=== PATIENT | male | born 1965 | race Caucasian/White ===

== ENCOUNTER 2020-02-18 20:23 | Emergency (ER) | payer OTHER, SELFPAY ==
--- NOTE | ~2020-02-18 | CT_ITS ---
EXAMINATION: CT abdomen pelvis w con EXAM DATE: 02/18/2020 22:05 INDICATION: Right lateral abdominal pain. TECHNIQUE: Spiral CT of the abdomen and pelvis was performed following intravenous injection of 100 m L Omnipaque 350. Axial, coronal and sagittal images were reviewed. The dose-length product (DLP) fo r this examination was 317.20 mGy-cm. The exposure was tailored according to patient size (auto mA e xposure control), and iterative reconstruction (ASIR) was used as additional dose reduction technique . Comparison is made to prior examination from 05/27/2008. FINDINGS: The liver, spleen, adrenal glands and pancreas are unremarkable. Gallbladder is unremarkab le. No biliary obstruction. Portal and splenic veins are patent. Kidneys enhance symmetrically. T here is no hydronephrosis. The prostate is unremarkable. The bladder is unremarkable. There is no retroperitoneal or pelvic lymphadenopathy. The appendix is normal. The stomach and small bowel are unremarkable. There is expected amount of c olonic stool. No free intraperitoneal gas. The heart is normal in size. There are no pericardial or pleural effusions. The lung bases are unremarkable. The bones are unremarkable. Small umbilica l fat-containing hernia. IMPRESSION: 1. No acute intra-abdominal findings. 2. Small umbilical fat-containing hernia. Reviewed, dictated and finalized at location A.
[2020-02-18 20:29] VITALS: BP 147/38; PULSE 57; RESP 18; TEMP 35.9; O2SAT 100
[2020-02-18 20:36] LABS: Basophils Percent Auto 0.4 % (0.2-1.2); Eosinophils Absolute Auto 0.1 K/mm3 (0-0.3); Eosinophils Percent Auto 1.7 % (0-4.4); Immature Granulocyte Absolute 0.01 K/mm3 (0.00-0.031); Immature Granulocyte Percent A 0.1 % (0-0.5); Lymphocytes Absolute Auto 2.05 K/mm3 (0.9-3.2); Lymphocytes Percent Auto 26.3 % (18.3-44.2); Mean Corpuscular HGB Conc 34.1 g/dl (32-36); Mean Corpuscular Hemoglobin 31.2 pg (26-34); Mean Corpuscular Volume 91.5 fl (80-100); Mean Platelet Volume 9.9 fl (7.4-10.4); Monocytes Absolute Auto 0.4 K/mm3 (0.1-0.6); Monocytes Percent Auto 5.5 % (2.6-8.5); Neutrophils Absolute Auto 5.2 K/mm3 (1.3-6.7); Platelet Count Result 260 k/mm3 (150-375); Red Blood Count 4.81 M/mm3 (4.6-6.20); Red Cell Distribution Width 12.7 % (11.5-14.5); White Blood Count 7.8 K/mm3 (4.5-10.0)
[2020-02-18 20:48] LABS: Alanine Aminotransferase 21 U/L (4-50); Albumin Level 4.3 g/dL (3.5-5.1); Alkaline Phosphatase 68 U/L (38-126); Anion Gap 12.6 mmol/L (7-16); Aspartate Amino Transferase 24 U/L (17-59); Bilirubin,Total 0.6 mg/dL (0.2-1.3); Blood Urea Nitrogen 18 mg/dL (9-20); Carbon Dioxide 27 mmol/L (22-30); Chloride 102 mmol/L (98-107); Estimated CRCL calculation 74 ml/min; Estimated Glomerular Filt Rate > 60; Glucose 155 mg/dL (75-110); Lipase 50 U/L (23-300); Potassium 4.6 mmol/L (3.4-5.0); Sodium 137 mmol/L (137-145)
[2020-02-18 21:02] LABS: Add Urine Microscopic? YES; Appearance Urine Clear (Clear); Bilirubin Urine Negative (Negative); Blood Urine Negative (Negative); Color Urine Yellow (Yellow); Glucose Urine UA Negative (Negative); Ketones Urine Negative (Negative); Leukocyte Esterase Ur Negative LEU/UL (Negative); Mucus Urine Few /lpf; Nitrate Urine Negative (Negative); Protein Urine Negative (Negative); RBC Urine 0-2 /hpf (0-2); Specific Grav Ur 1.021 (1.001-1.035); Urobilinogen Urine Negative mg/dL (<2.0); WBC Urine 0-3 /hpf
--- NOTE | 2020-02-18 21:09 | ED.ABDPAIN ---
HPI - Abdominal Pain General Chief Complaint: Abdominal Pain Stated Complaint: abd pain Time Seen by Provider: 02/18/20 21:04 History of Present Illness HPI narrative: Patient presents with his girlfriend Chastity for right-sided abdominal pain. Started about 2 PM today. Maximum is 8 out of 10 on the pain. Pain comes in severe to moderate waves. He had some chills and sweats with nausea earlier. No documented fever. He still has his appendix and his gallbladder. His surgeries include left inguinal hernia repair. He has not been sick recent. He does not smoke cigarettes, rarely drinks alcohol, does not do marijuana. 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 MD elicited complaint: abdominal pain Pertinent past history: other (Left inguinal hernia repair) Onset (ago): hour(s) Pain Consistency: other (Waxes and wanes) Location: R flank Severity: severe Radiation: none Exacerbating factors: other (Palpitation) Relieving factors: nothing Context: confirms other (None of the above) Associated symptoms: nausea and chills Related Data Home Medications Medication Instructions Recorded Confirmed No Home Medications 02/18/20 02/18/20 Allergies Allergy/AdvReac Type Severity Reaction Status Date / Time No Known Allergies Allergy Unverified 02/18/20 20:35 Review of Systems Review of Systems: Narrative: CONSTITUTIONAL: Denies fever, but had chills, and sweats. EYES: Denies visual changes, redness, or discharge. ENT: Denies rhinorrhea, congestion, sore throat, or otalgia. CARDIOVASCULAR: Denies chest pain, palpitations, or edema. RESPIRATORY: Denies cough or dyspnea. GASTROINTESTINAL: He has abdominal pain, nausea, but not vomiting, or diarrhea. GENITOURINARY: Denies dysuria or hematuria. SKIN: Denies rash or itching. MUSCULOSKELETAL: Denies back pain, joint pain, or myalgia. NEUROLOGIC: Denies headache, numbness, or weakness. All systems reviewed & are unremarkable except as noted in HPI and below PMFSH Past Medical History Medical History Right flank pain Surgical History Surgical History (Updated 02/18/20 @ 21:12 by Monica Umana MD) History of inguinal hernia repair Family History Family History (Updated 04/03/19 @ 09:58 by DOCTOR UNKNOWN) Mother Patient's mother is in good health Father Patient's father is in good health Social History Social History (Updated 02/18/20 @ 21:12 by Monica Umana MD) Smoking status: Never smoker Alcohol intake: current Substance use: never Gender identity (if verbalized by the patient): Male Exam Narrative: Exam Narrative: GENERAL: Well-appearing, well-nourished, writhing in the bed holding his right flank. HEAD: Normocephalic, atraumatic. EYES: PERRLA and EOMI. ENT: Nares clear, no rhinorrhea or epistaxis. Mucous membranes moist. NECK: Supple. CHEST: Clear to auscultation. No respiratory distress. HEART: Regular rate and rhythm. No murmur heard. Normal peripheral pulses. ABDOMEN: Soft, nontender, nondistended, normal active bowel sounds. EXTREMITIES: Normal range of motion. No edema. SKIN: Warm, dry, no rash. NEURO: No focal deficits. Alert and oriented x3. PSYCH: Normal mood and affect. Course Reevaluation(s) Reevaluation #1: Went into check on the patient. His pain is much better. CAT scan did not show any serious disease. I told him about the umbilical hernia. I also told him and his girlfriend Chastity, about the possibility of intussusception, which is an intermittent process. He should call Dr. Espinosa tomorrow Date: 02/18/20 Time: 22:31 Vital Signs Vital signs: Vital Signs Temperature 96.6 F L 02/18/20 20:29 Pulse Rate 57 L 02/18/20 20:29 Respiratory Rate 18 02/18/20 20:29 Blood Pressure 147/38 H 02/18/20 20:29 Pulse Oximetry 100 02/18/20 20:29 Temperature 96.6 F L 02/18/20 20:29 Pulse Rate 57 L 02/18/20 20:29 Respiratory Rate 18 02/18/20 20:29 Blood Pres
[2020-02-18] MEDS: SODIUM CHLORIDE 0.9% IV 1,000 ML 500 ML IV CONT (21:37)
[2020-02-18] MEDS: MORPHINE SULFATE 4 MG/ML INJ IV PUSH (21:37)
[2020-02-18 22:01] VITALS: BP 134/54; PULSE 63; RESP 14; O2SAT 98
[2020-02-18 22:07] VITALS: TEMP 35.9
[2020-02-18 23:12] VITALS: BP 147/62; PULSE 65; RESP 16; TEMP 36.6; O2SAT 98
== END 2020-02-18 23:13 | disposition home or self-care (01) ==
PROVIDERS: Emergency Provider Emergency Medicine; PCP Internal Medicine
DX: K42.9 Umbilical hernia without obstruction or gangrene (principal)
CPT/HCPCS: 36415; 74177; 80053; 81001; 83690; 85025; 96361; 96374; 99284; J2270; J7030; Q9967

== ENCOUNTER → 2021-11-19 08:02 | Outpatient (CLI) | payer OTHER, SELFPAY ==
[2021-11-19 15:55] LABS: SARS-CoV-2 RNA PCR Positive
== END ==
PROVIDERS: PCP Internal Medicine; Visit Provider Clinical Nurse Specialist
DX: U07.1 COVID-19 (principal)
CPT/HCPCS: C9803; U0003; U0005

== ENCOUNTER 2024-11-04 15:42 | Outpatient (CLI) | payer OTHER, SELFPAY ==
--- NOTE | ~2024-11-04 | XR_ITS ---
PA, oblique, and lateral views of the left fifth finger CLINICAL HISTORY: Unspecified deformity FINDINGS: No acute fracture or dislocation seen. Joint spaces are intact. Soft tissues are unremarkab le. IMPRESSION: No significant abnormality seen. Reviewed, dictated and finalized at location .
--- OUTSIDE RECORDS SUMMARY | 2024-11-04 17:34 | XMS_ITS | Clinical Summary ---
Author Organization [facility] Address [address] [place] [address] Care Team Providers Care Posting Specialist Name Role Phone Mino Monge DO Primary Care Provider Source Comments [facility],non-owned Affiliates and Associated Physician Practices is amultiple site organization consisting of ambulatory clinics and hospital sitesin [place], [place], [place] and [place]. This disclosure is being madepursuant to the Care Everywhere program and may not contain all information available regarding this patient. Last updated 18.[facility] Allergies No known active allergies Medications * Be aware that medications may not be up to date on this document. Alwaysverify current medications with the patient. predniSONE (DELTASONE) 20 MG tabletIndicatio ns:Contact Dermatitis 60 mg po for 5 days, 40 mg po for 5 days, 20 mg po for 5 days Reasons: Contact Dermatitis 30 Tab 7 Active Additional Information Patient not taking.Reported on 12/31/2020 triamcinolone acetonide (KENALOG) 0.1 % cream Apply to affected area 2 times daily 80 g 1 Active Social History Tobacco Use Types Packs/Day Years Used Date Smoking Tobacco: Never Smokeless Tobacco: Never Sex and Gender Information Value Date Recorded Sex Assigned at Not on file Legal Sex Male 6:22 AM CDT Gender Identity Not on file Sexual Orientation Not on file Last Filed Vital Signs Vital Sign Reading Time Taken Comments Blood Pressure 116/70 12/31/2020 12:25 PM CDT Pulse 62 12/31/2020 12:25 PM CDT Temperature 36.7 C (98 F) 12/31/2020 12:25 PM CDT Respiratory Rate 18 12/31/2020 12:25 PM CDT Oxygen Saturation 100% 12/31/2020 12:25 PM CDT Inhaled Oxygen Concentration - - Weight 73.5 kg (162 lb) 12/31/2020 12:25 PM CDT Height 172.7 cm (5' 8 ) 12/31/2020 12:25 PM CDT Body Mass Index 24.63 12/31/2020 12:25 PM CDT Plan of Treatment Health Maintenance Due Date Last Done Comments COLOGUARD (AGES 45-75) - COL ON CA SCREENING 1967 COLON MONITORING 1967 COLONOSCOPY - COLON CA SCREENING 1967 CT COLONOGRAPHY - COLON CA SCREENING 1967 Colorectal Cancer Screening 1967 FIT - COLON CA SCREENING 1967 FLEX SIG - COLON CA SCREENING 1967 LIPID TESTING 1967 HIV SCREENING 12/17/1982 HEPATITIS C SCREENING 12/13/1985 DTAP/TDAP/TD VACCINES (1 - Tdap) 12/17/1986 HEPATITIS B VACCINE (1 of 3 - 19+ 3-dose series) 12/17/1986 PNEUMOCOCCAL VACCINE 50+ (1 of 1 - PCV) 12/17/2017 ZOSTER VACCINE (1 of 2) 12/17/2017 COVID-19 VACCINE (3 - 2023-2 5 season) 2024 10/19/2020, 09/27/2020 DEPRESSION SCREENING 07/17/2024 INFLUENZA VACCINE (Season Ended) 2025 05/15/2020, 05/21/2013 HIB VACCINE Aged Out No longer eligi ble based on patient's age to complete this topic HPV VACCINE Aged Out No longer eligi ble based on patient's age to complete this topic MENINGOCOCCAL (Group B) VACCINE SHARED DECISION-MAKING Aged Out No longer eligible based on patient's age to complete this topic MENINGOCOCCAL GROUPS A/C/Y/W VACCINE Aged Out No longer eligible b ased on patient's age to complete this topic Insurance [facility] Care Teams Posting Specialist Relationship Specialty Start Date End Date Mino Monge DO PCP - General Internal Medicine 12/16/16
== END 2024-11-04 15:43 | disposition home or self-care (01) ==
PROVIDERS: PCP Internal Medicine; Visit Provider Plastic Surgery
DX: M20.002 Unspecified deformity of left finger(s) (principal)
CPT/HCPCS: 73140

== ENCOUNTER 2024-11-12 15:40 | Outpatient (CLI) | payer OTHER, SELFPAY ==
--- NOTE | ~2024-11-12 | XR_ITS ---
Right foot Technique: AP and lateral views were obtained. Clinical History: Pain Findings: No acute fracture or dislocation is seen. Osseous alignment is anatomic. Joint spaces are p reserved without erosive or degenerative change. Soft tissues are unremarkable. Impression: Unremarkable right foot radiographs. Reviewed, dictated and finalized at [facility]. Impression: Unremarkable right foot radiographs.
--- NOTE | ~2024-11-12 | XR_ITS ---
Lumbosacral Spine: AP and lateral views Clinical History: Pain Findings: The normal lordotic curve is maintained. The vertebral bodies and posterior elements are i ntact. There is moderate degenerative disc narrowing at L1-L2 and L2-L3. There is mild facet arthropa thy, worst from L4 through S1. The sacroiliac joints are normally outlined. Impression: Mild degenerative spondylosis overall, as detailed above. Reviewed, dictated and finalized at location M. Impression: Mild degenerative spondylosis overall, as detailed above.
--- NOTE | ~2024-11-12 | XR_ITS ---
Cervical Spine: AP, lateral, open-mouth views Clinical History: Pain Findings: The normal lordotic curve is maintained. The vertebral bodies and posterior elements appea r intact. The intervertebral disc spaces are well maintained. Pre-vertebral soft tissues are unremar kable. Impression: No significant abnormality is seen. Reviewed, dictated and finalized at [facility]. Impression: No significant abnormality is seen.
== END 2024-11-12 15:41 | disposition home or self-care (01) ==
PROVIDERS: PCP Nurse Practitioner; Visit Provider Nurse Practitioner
DX: M54.2 Cervicalgia (principal); M47.896 Other spondylosis, lumbar region; M79.671 Pain in right foot
CPT/HCPCS: 72040; 72100; 73620